=== PATIENT | female | born 1940 | race Two or more races ===

== ENCOUNTER 2022-04-07 07:27 | Outpatient (CLI) | payer OTHER | END 2022-04-07 07:40 | disposition home or self-care (01) | LOC: RX STUDY 07:27 | PROVIDERS: ATTEND General Practice | DX: I69.391 Dysphagia following cerebral infarction (principal); K21.9 Gastro-esophageal reflux disease without esophagitis ==

== ENCOUNTER 2023-06-23 09:47 | Outpatient (CLI) | payer OTHER | END 2023-06-23 09:54 | disposition home or self-care (01) | LOC: TOM 09:47 | PROVIDERS: ATTEND Internal Medicine Gastroenterology | DX: K56.609 Unspecified intestinal obstruction, unspecified as to partial versus complete obstruction (principal); K63.5 Polyp of colon ==